=== PATIENT | female | born 1995 | race Caucasian/White ===

== ENCOUNTER 2024-01-26 10:58 | Outpatient (CLI) | payer OTHER, SELFPAY | END 2024-01-26 10:59 | disposition home or self-care (01) | LOC: ANHLAB 11:04 | PROVIDERS: PCP Internal Medicine; Visit Provider Advanced Practice Midwife | DX: O20.0 Threatened abortion (principal) | CPT/HCPCS: 36415; 84702 ==

== ENCOUNTER 2024-01-29 09:22 | Outpatient (CLI) | payer OTHER, SELFPAY | END 2024-01-29 09:23 | disposition home or self-care (01) | PROVIDERS: PCP Internal Medicine; Visit Provider Advanced Practice Midwife | DX: O20.0 Threatened abortion (principal) | CPT/HCPCS: 36415; 84702 ==

== ENCOUNTER 2024-01-31 11:42 | Outpatient (CLI) | payer OTHER, SELFPAY | END 2024-01-31 11:43 | disposition home or self-care (01) | PROVIDERS: PCP Internal Medicine; Visit Provider Obstetrics & Gynecology | DX: O20.0 Threatened abortion (principal); Z3A.00 Weeks of gestation of pregnancy not specified | CPT/HCPCS: 36415; 84702 ==

== ENCOUNTER 2024-02-12 13:21 | Outpatient (CLI) | payer OTHER, SELFPAY | END 2024-02-12 13:22 | disposition home or self-care (01) | PROVIDERS: PCP Internal Medicine; Visit Provider Obstetrics & Gynecology | DX: O20.0 Threatened abortion (principal) | CPT/HCPCS: 36415; 84702 ==

== ENCOUNTER 2024-02-23 00:38 | Day surgery (SDC) | payer OTHER, SELFPAY ==
[2024-02-22 14:51] VITALS: BMI 23.3
--- NOTE | 2024-02-22 14:55 | PC.NURSE ---
Report to the Outpatient Waiting Room, entrance under the green pavilion located off [facility], at time 0730 on date 02/23/24. Planned Procedure Time: 0930. Time changes happen often and if your time is changed the preop area will call you the afternoon before. - You and your visitor will be asked to self-screen and do not enter if you have any COVID symptoms. - A mask is optional within the hospital at this time. Patients may have clear liquids (water, carbonated beverages, clear teas, apple juice) until 3 hours prior to surgery with a maximum of 20 ounces. - No food from midnight until time of surgery Take the following medications with a SIP of water the morning of surgery: TYLENOL IF NEEDED DO NOT STOP ANY OF YOUR OTHER PRESCRIPTION MEDICATIONS PRIOR TO SURGERY ?EXCEPT THE FOLLOWING Medications to discontinue per physician: N/A Date to take last dose: N/A Please no make-up, nail maldivian, hairspray, perfume, deodorant, or body powder the day of surgery. No jewelry (including any body piercings) or valuables the day of surgery, leave them at home. Please take a shower or bath the night before, or the morning of, surgery with an antibacterial soap. Wear comfortable, loose fitting clothing. - Jewelry must be removed prior to entering the operating room. Rings and piercings that are not removed may be cut off. - The hospital will not accept responsibility for valuables. - Please leave all valuables, including medications, at home the day of surgery. If you are going home after surgery, a licensed commercial trailer truck driver must drive you home. - NO public transportation without another adult if you receive anesthesia. - We recommend that an adult stay with you for 24 hours following discharge. - We also recommend that you do not drive, make important decision, drink alcoholic beverages, or take any drugs that were not prescribed by your health care provider for at least 24 hours after your discharge time. Follow any additional instructions given to you from your surgeon. If you or anyone in your household have experienced Covid symptoms in the past week, please notify your surgeon or the nurse liaison at the phone number below for possible testing. Telephone instructions given to AVEL YOUNG and asked if any additional questions and then verbalized understanding. Patient advised to call surgeon office or pre surgery nurse liaison [phone] if any additional questions.
[2024-02-23] MEDS: ACETAMINOPHEN 500 MG TABLET 1000 MG PO (08:47)
[2024-02-23] MEDS: LACTATED RINGERS 1,000 ML 30 ML IV CONT (08:47)
--- NOTE | 2024-02-23 08:54 | P.PNAN_ITS ---
Anes - Initial Pre Proc Eval Procedure: Operation Date: 02/23/24 09:30 Proposed Procedures p Suction Dilation and Curettage - Stefanie Alcantara MD Date/Time: 02/23/24 08:54 Surgeon: Stefanie Alcantara MD Pre Op Diagnosis: Missed Ab Patient Data Age: 29 Gender: F Height: 1.78 m Weight: 73.95 kg Allergies Allergy/AdvReac Type Severity Reaction Status Date / Time No Known Allergies Allergy Verified 02/23/24 07:52 Home Medications Medication Instructions Recorded Confirmed Type acetaminophen 500 mg tablet 1,000 mg PO QID PRN Pain 02/22/24 02/22/24 History Laboratory Tests 02/23/24 08:41 Blood Type Pending Antibody Screen Pending Doses of RhIg Required Pending Patient hx anesthesia problems: none Family hx anesthesia problems: none Results Review: All pre-operative results and documents have been reviewed as part of the pre- operative evaluation. [facility] Social History Social History Smoking status: Current every day smoker Tobacco type: cigarettes and e-cigarettes/vaping Additional smoking assessment comments: QUIT CIGARETTES, NOW VAPING Alcohol intake: never Substance use: never Substance use type: does not use Living arrangements: with family Spiritual care concerns: No Anes - Eval Final PreProcedure Day of Procedure 02/23/24 08:54 Patient weight: normal Heart: regular rate and rhythm Lungs: clear to auscultation Airway: Mallampati scale class II Neurological: alert and oriented Last oral intake: >/= 8 hours ASA classification: II Emergent: no Anesthetic plan: proceed Anesthesia type and monitoring: general GIVS and standard monitoring Other findings: Pt vapes daily, vaped at 715 am. Results Review: All pre-operative results and documents have been reviewed as part of the pre- operative evaluation. Informed Consent: The patient's anesthetic plan and its attendant risks and benefits were discussed with the patient/family/POA. Questions were solicited and answers provided to the satisfaction of the patient/family/POA.
[2024-02-23 08:57] VITALS: BP 111/76; PULSE 94; RESP 16; TEMP 36.6; O2SAT 100
--- NOTE | 2024-02-23 09:28 | PM.IMHP ---
H&P: HPI History of Present Illness Date/Time: 02/23/24 09:28 Chief Complaint: Vaginal bleed Narrative: this patient is a 29-year-old female with recent incomplete miscarriage. She is bleeding vaginally. We agreed to perform suction D&C. She understands the procedure. Has been explained her in detail. She understands the risk. She understands that injuries may occur that result in hospitalization, more surgery, and severe illness. She understands risk of hemorrhage and infection. She denies any nausea, vomiting, fever, chills. She denies any chest pain or shortness of breath. Review of Systems Review of Systems: All systems reviewed & are unremarkable except as noted in HPI and below Constitutional: Constitutional: Denies chills, Denies fatigue, Denies fever(s) and Denies weakness Eyes: Eyes: Denies blurry vision, Denies change in vision, Denies loss of peripheral vision, Denies loss of vision, Denies other visual disturbances and Denies eye pain ENT: Denies vertigo, Denies dizziness, Denies hearing loss, Denies mouth pain, Denies nasal obstruction, Denies neck mass and Denies neck pain Cardiovascular: Cardiovascular: Denies chest pain, Denies diaphoresis, Denies syncope, Denies leg edema and Denies dyspnea Respiratory: Respiratory: Denies chest congestion, Denies cough, Denies hemoptysis, Denies dyspnea and Denies wheezing Gastrointestinal: Gastrointestinal: Denies abdominal pain, Denies constipation, Denies diarrhea, Denies nausea and Denies vomiting Genitourinary: Genitourinary: Denies hematuria, Denies change in libido, Denies nocturia, Denies genital lesions, Denies flank pain and Denies urinary urgency Musculoskeletal: Musculoskeletal: Denies abnormal gait, Denies back pain, Denies myalgias, Denies arthralgias, Denies joint swelling, Denies muscle weakness and Denies neck pain Integumentary/Breasts: Skin/Breast: Denies swelling, Denies breast pain, Denies breast mass, Denies dry skin, Denies nipple discharge, Denies unusual bruising and Denies jaundice Neurologic: Denies Neuro-related abnormal movements, Denies Abnormal speech present, Denies abnormal gait, Denies behavioral changes, Denies confusion, Denies vertigo, Denies dizziness, Denies syncope, Denies loss of vision, Denies memory loss, Denies convulsions and Denies weakness Psychiatric: Psychiatric: Denies abnormal sleep pattern, Denies behavioral changes, Denies change in libido, Denies confusion, Denies depression, Denies anhedonia and Denies memory loss Endocrine: Endocrine: Reports no additional endocrine complaints, Denies change in libido and Denies fatigue Hematologic/Lymphatic: Hematologic/Lymphatic: Reports no additional hematologic/lymphatic complaints Allergic/Immunologic: Allergic/Immunologic: Reports no additional allergic/immunologic complaints and Denies wheezing PMF Social History Social History Smoking status: Current every day smoker Tobacco type: cigarettes and e-cigarettes/vaping Additional smoking assessment comments: QUIT CIGARETTES, NOW VAPING Alcohol intake: never Substance use: never Substance use type: does not use Living arrangements: with family Spiritual care concerns: No Meds Home Medications and Allergies Home Medications Medication Instructions Recorded Confirmed Type acetaminophen 500 mg tablet 1,000 mg PO QID PRN Pain 02/22/24 02/22/24 History Allergies Allergy/AdvReac Type Severity Reaction Status Date / Time No Known Allergies Allergy Verified 02/23/24 07:52 Vital Signs Vital Signs - 24 hr 02/23/24 08:57 Temperature 98 F Pulse Rate 94 Respiratory Rate 16 Blood Pressure 111/76 Pulse Oximetry 100 Oxygen Delivery Room Air Exam Const: General: cooperative, healthy appearing, comfortable and no acute distress Orientation/consciousness: oriented to person, oriented to place and oriented to time HENMT: Head: normal
--- NOTE | 2024-02-23 09:31 | WPDHPUPDATE1 ---
History and Physical Update Update Date/Time: 02/23/24 09:31 History and Physical has been reviewed, including an updated exam of the patient. There are NO changes in the patient's condition. Risks, benefits, and alternatives have been discussed and questions answered. Patient agrees to proceed with procedure.
--- NOTE | 2024-02-23 10:01 | W.PM.PROC2 ---
Procedure Note - Detailed Date of Procedure 02/23/24 Pre-op Diagnosis Incomplete Miscarriage Post-op Diagnosis Same Procedure Performed Suction D&C Surgeon Stefanie Alcantara MD Anesthesia MAC Indications missed Findings normal-appearing vulva vagina and cervix to. Moderate amount of products conception within the uterus. 8 cm uterus Description of Procedure the patient was taken the operating room. She was prepped and draped in dorsal lithotomy position after induction of mac anesthesia. A speculum was placed in the vagina. Cervix grasped with tenaculum. The cervix was dilated to about 1 cm Using Berger dilators. A 8. Kosovan curved curette was used to perform suction D&C. The curette was introduced and vacuum was applied. The curette was removed over all surfaces of the intrauterine cavity multiple times. This was done until all the surfaces were clear and had the familiar grainy texture they can be felt through the instrument. A sharp curette was then used to curettage all the surfaces. The suction cup was then reapplied 1 more time to remove any debris. The instruments were removed. The speculum and tenaculum were removed. The patient tolerated the procedure well. She was taken recovery room stable condition. Estimated Blood Loss 50 Drains No Packing No Pathology Yes Complications No immediate complications Condition Stable Disposition PACU
[2024-02-23 10:03] VITALS: BP 92/55; PULSE 64; RESP 16; O2SAT 100
[2024-02-23 10:25] VITALS: BP 101/64; PULSE 66; RESP 16; O2SAT 100
[2024-02-23 10:50] VITALS: BP 100/63; PULSE 62; RESP 16
== END 2024-02-23 11:02 | disposition home or self-care (01) ==
PROVIDERS: PCP Internal Medicine; Visit Provider Obstetrics & Gynecology
PROC: (CPT 59812; principal; 2024-02-23 09:30)
DX: O03.4 Incomplete spontaneous abortion without complication (principal); F17.290 Nicotine dependence, other tobacco product, uncomplicated
CPT/HCPCS: 59812; 36415; 85461; 86850; 86900; 86901; 88305; A9270; J2250; J2704; J3010; J7120

== ENCOUNTER 2024-10-30 08:40 | Outpatient (CLI) | payer OTHER, SELFPAY ==
[2024-10-30 18:34] LABS: Hematocrit 40.2 % (37.0-47.0); Hemoglobin 12.6 g/dL (12.0-15.0); Mean Corpuscular HGB Conc 31.3 g/dl (32-36); Mean Corpuscular Hemoglobin 29.6 pg (26-34); Mean Corpuscular Volume 94.6 fl (80-100); Mean Platelet Volume 10.8 fl (7.4-10.4); Platelet Count Result 266 k/mm3 (150-375); Red Blood Count 4.25 M/mm3 (4.2-5.4); Red Cell Distribution Width 13.2 % (11.5-14.5); White Blood Count 4.9 K/mm3 (4.5-10.0)
[2024-10-30 18:59] LABS: Alanine Aminotransferase 18 U/L (6-35); Albumin Level 4.2 g/dL (3.5-5.1); Alkaline Phosphatase 41 U/L (38-126); Anion Gap 1 mmol/L (4-12); Aspartate Amino Transferase 72 U/L (14-36); Bilirubin,Total 0.8 mg/dL (0.2-1.3); Blood Urea Nitrogen 14 mg/dL (7-17); Calcium 9.1 mg/dL (8.4-10.2); Carbon Dioxide 29 mmol/L (22-30); Chloride 108 mmol/L (98-107); Cholesterol 183 mg/dL (0-200); Estimated Glomerular Filt Rate > 60; Glucose 82 mg/dL (65-110); HDL Direct 61 mg/dL; Potassium 4.4 mmol/L (3.4-5.0); Sodium 138 mmol/L (137-145); Triglycerides 91 mg/dL (<150); Uric Acid 3.5 mg/dL (2.5-7.5)
[2024-10-30 19:02] LABS: Rheumatoid Factor < 12.0 IU/ML (<12)
[2024-10-30 19:10] LABS: Free T4 Free Thyroxine 1.01 ng/dL (0.78-2.19); LDL Cholesterol Direct 81 mg/dL
[2024-10-30 19:50] LABS: Erythrocyte Sedimentation Rate 7 mm/hr (0-20)
[2024-11-01 15:43] LABS: ANA Cascade Screen NEGATIVE (NEGATIVE)
== END 2024-10-30 08:41 | disposition home or self-care (01) ==
LOC: ANHBWCLAB 08:41
PROVIDERS: PCP Nurse Practitioner Adult Health; Visit Provider Nurse Practitioner Adult Health
DX: M25.50 Pain in unspecified joint (principal); Z13.9 Encounter for screening, unspecified; Z13.29 Encounter for screening for other suspected endocrine disorder; M43.9 Deforming dorsopathy, unspecified
CPT/HCPCS: 36415; 80053; 80061; 84439; 84443; 84550; 85027; 85652; 86038; 86225; 86235; 86364; 86430

== ENCOUNTER 2024-10-31 11:53 | Outpatient (CLI) | payer OTHER, SELFPAY ==
--- NOTE | ~2024-10-31 | XR_ITS ---
Lumbosacral Spine: AP and lateral views Clinical History: Pain Findings: The normal lordotic curve is maintained. The vertebral bodies and posterior elements are i ntact. The intervertebral disc spaces are preserved. The sacroiliac joints are normally outlined. Impression: No significant abnormality. Reviewed, dictated and finalized at [facility]. LIARY EQUIPMENT OPERATOR Impression: No significant abnormality.
--- NOTE | ~2024-10-31 | XR_ITS ---
Cervical Spine: AP, lateral, open-mouth views Clinical History: Pain Findings: The normal lordotic curve is maintained. The vertebral bodies and posterior elements appea r intact. The intervertebral disc spaces are well maintained. Pre-vertebral soft tissues are unremar kable. Impression: No significant abnormality is seen. Reviewed, dictated and finalized at [facility]. E INSPECTOR Impression: No significant abnormality is seen.
--- NOTE | ~2024-10-31 | XR_ITS ---
Thoracic spine: Clinical Indication: Pain AP and lateral views were performed. No fracture is seen. There is normal alignment of the vertebrae. The intervertebral disc spaces appe ar normal. Paravertebral soft tissues appear normal. Impression: No significant abnormalities noted. Reviewed, dictated and finalized at [facility]. LIFT DRIVER Impression: No significant abnormalities noted.
== END 2024-10-31 11:54 | disposition home or self-care (01) ==
LOC: ANHBWCIMG 11:54
PROVIDERS: PCP Nurse Practitioner Adult Health; Visit Provider Nurse Practitioner Adult Health
DX: M54.2 Cervicalgia (principal); M54.6 Pain in thoracic spine; M54.50 Low back pain, unspecified; M43.9 Deforming dorsopathy, unspecified
CPT/HCPCS: 72040; 72072; 72100

== ENCOUNTER 2025-03-26 14:07 | Outpatient (CLI) | payer OTHER, SELFPAY ==
--- NOTE | ~2025-03-26 | US_ITS ---
Pelvic ultrasound. Clinical History: Ovarian cyst Technique: Realtime transabdominal and transvaginal scanning of the pelvis was performed. Color flow Doppler and Doppler spectral analysis were performed. Findings: The uterus is retroverted.. The endometrial stripe has a thickness of 9 mm. No focal mass is identified. The right ovary measures 5.7 x 4.4 x 3.6 cm. Minimally complex right ovarian cyst measures 3.3 cm in diameter. Smaller minimally complex right ovarian cyst measures 2.4 cm in diameter. The left ovary measures 3.3 x 1.9 x 1.7 cm. No significant left ovarian or adnexal mass is seen. There is small amount of free fluid in the cul de sac. Impression: Minimally complex right ovarian cysts measures 3.3 cm and 2.4 cm in diameter respectively. These are probably hemorrhagic cysts. Consider follow-up ultrasound in 6-8 weeks as indicated to assess for res olution. Reviewed, dictated and finalized at [facility]. Impression: Minimally complex right ovarian cysts measures 3.3 cm and 2.4 cm in diameter re spectively. These are probably hemorrhagic cysts. Consider follow-up ultrasound in 6-8 weeks as indicated to assess for resolution.
== END 2025-03-26 14:08 | disposition home or self-care (01) ==
LOC: MICIMG 14:07
PROVIDERS: PCP Nurse Practitioner Adult Health; Visit Provider Nurse Practitioner Adult Health
DX: R93.89 Abnormal findings on diagnostic imaging of other specified body structures (principal); N83.209 Unspecified ovarian cyst, unspecified side
CPT/HCPCS: 76830; 76856

== ENCOUNTER 2025-05-13 08:44 | Outpatient (CLI) | payer OTHER, SELFPAY ==
--- NOTE | ~2025-05-13 | US_ITS ---
Pelvic ultrasound. Clinical History: Ovarian cyst COMPARISON: 03/26/2025 Technique: Realtime transabdominal and transvaginal scanning of the pelvis was performed. Color flow Doppler and Doppler spectral analysis were performed. Findings: The uterus is retroverted. The endometrial stripe has a thickness of 4 mm. No focal mass i s identified. The right ovary measures 4.8 x 2.5 x 2.6 cm. No significant right ovarian or adnexal mass is seen. The left ovary measures 4.4 x 1.8 x 2.1 cm. No significant left ovarian or adnexal mass is seen. There is no evidence of free fluid in the cul de sac. Impression: No significant abnormality seen. Reviewed, dictated and finalized at [facility]. Impression: No significant abnormality seen.
== END 2025-05-13 08:45 | disposition home or self-care (01) ==
LOC: MICIMG 08:45
PROVIDERS: PCP Nurse Practitioner Adult Health; Visit Provider Nurse Practitioner Adult Health
DX: N83.209 Unspecified ovarian cyst, unspecified side (principal)
CPT/HCPCS: 76830; 76856